=== PATIENT | male | born 1975 | race Caucasian/White ===

== ENCOUNTER 2023-06-03 08:03 | Emergency (ER) | payer MEDICAID ==
[~2023-06-03] VITALS: Ht 165.1 cm; Wt 86.4 kg
[~2023-06-03 08:03] MED LIST: ALBU8.5H8 IH; AMLO-258 PO; LISI-893 PO; METF-1211 PO; PRAV20TA4 PO; TRAM-559 PO
[2023-06-03 08:04] VITALS: TEMP 98
[2023-06-03] MEDS ORDERED: MECL-302 PO (08:13)
[2023-06-03] MEDS ORDERED: PREG75 PO (08:13)
[2023-06-03] MEDS ORDERED: ATOR20TA PO (08:13)
[2023-06-03] MEDS ORDERED: LOSA-382 PO (08:13)
[2023-06-03] MEDS ORDERED: ONDA-104 PO ×2 (08:13→11:19)
[2023-06-03] MEDS ORDERED: METF-1211 PO (08:13)
[2023-06-03] MEDS ORDERED: HYDR25TA2 PO (08:13)
[2023-06-03] MEDS ORDERED: ACETAMINOPHEN 500 MG TABLET PO ONE (09:45)
[2023-06-03] MEDS ORDERED: MECLIZINE HCL 25 MG TABLET PO ONE (09:45)
[2023-06-03] MEDS ORDERED: ONDANSETRON HCL 4 MG TABLET PO ONE (09:45)
[2023-06-03 09:50] LABS: BASOPHILS % (AUTO) 0.6 % (0.0-2.0); HEMATOCRIT 38.1 % (41-53); HEMOGLOBIN 13.1 g/dL (13.5-17.5); LYMPHOCYTES # (AUTO) 0.9 K/uL (1.0-4.8); LYMPHOCYTES % (AUTO) 13.6 % (22.0-44.0); MEAN CORPUSCULAR HEMOGLOBIN 28.6 pg (26.0-34.0); MEAN CORPUSCULAR HGB CONC 34.4 G/dL (31.0-37.0); MEAN CORPUSCULAR VOLUME 83 fL (80-100); MONOCYTES # (AUTO) 0.4 K/uL (0.1-1.0); MONOCYTES % (AUTO) 5.9 % (2.0-9.0); NEUTROPHILS # (AUTO) 5.1 K/uL (1.8-7.7); NEUTROPHILS % (AUTO) 76.9 % (40.0-70.0); PLATELET COUNT (AUTO) 237 K/uL (150-450); RED BLOOD CELL COUNT(AUTO) 4.58 MIL/uL (4.50-5.90); RED CELL DISTRIBUTION WIDTH 13.5 % (11.5-14.5); WHITE BLOOD COUNT (AUTO) 6.6 K/uL (4.5-11.0)
[2023-06-03 09:53] LABS: ALANINE AMINOTRANSFERASE 25 U/L (12-78); ALBUMIN 3.6 g/dL (3.4-5.0); ALKALINE PHOSPHATASE 97 U/L (46-116); ANION GAP 6 mmol/L (8-16); ASPARTATE AMINOTRANSFERASE 12 U/L (15-37); BILIRUBIN,TOTAL 0.5 mg/dL (0.1-1.0); CALCIUM, TOTAL 9.1 mg/dL (8.8-10.5); CARBON DIOXIDE 29 mmol/L (22-29); CHLORIDE 103 mmol/L (98-107); CREATININE 1.07 mg/dL (0.60-1.30); GLOMERULAR FILTR. RATE CALC > 60 mL/min (>60); GLUCOSE,RANDOM 219 mg/dL (70-110); POTASSIUM 3.9 mmol/L (3.5-5.1); SODIUM SERUM 138 mmol/L (136-145); TOTAL PROTEIN, SERUM 7.4 g/dL (6.4-8.2); TROPONIN I-HIGH SENSITIVITY 35 ng/L (<76); UREA NITROGEN, BLOOD 16 mg/dL (7-18)
[2023-06-03] MEDS ORDERED: ACET-66 PO (11:19)
[2023-06-03] MEDS ORDERED: MECL-134 PO (11:19)
[2023-06-03 11:39] VITALS: BP 162/91; PULSE 67; RESP 16
== END 2023-06-03 11:39 | disposition home or self-care (01) ==
LOC: EMS 08:07
DX: E11.65 Type 2 diabetes mellitus with hyperglycemia (principal); R42 Dizziness and giddiness; I10 Essential (primary) hypertension; Z98.890 Other specified postprocedural states
CPT/HCPCS: 99284; 70450; 80053; 82962; 84484; 85025; 36415; 93005; Q0162

== ENCOUNTER 2024-01-29 19:59 | Emergency (ER) | payer MEDICAID, OTHER ==
[~2024-01-29] VITALS: Ht 165.1 cm; Wt 88.6 kg
[~2024-01-29 19:59] MED LIST changes: +ACET-66 PO; -AMLO-258 PO; +ATOR20TA PO; +HYDR25TA2 PO; -LISI-893 PO; +LOSA-382 PO; +MECL-134 PO; +MECL-302 PO; +ONDA-104 PO; -PRAV20TA4 PO; +PREG75 PO; -TRAM-559 PO
[2024-01-29 20:01] VITALS: BP 151/74; PULSE 82; RESP 16; TEMP 97.6
[2024-01-29 20:33] LABS: BASOPHILS % (AUTO) 0.4 % (0.0-2.0); EOSINOPHILS % (AUTO) 3.1 % (1.0-6.0); HEMATOCRIT 39.1 % (41-53); HEMOGLOBIN 13.2 g/dL (13.5-17.5); LYMPHOCYTES # (AUTO) 1.5 K/uL (1.0-4.8); LYMPHOCYTES % (AUTO) 24.3 % (22.0-44.0); MEAN CORPUSCULAR HEMOGLOBIN 27.7 pg (26.0-34.0); MEAN CORPUSCULAR HGB CONC 33.7 G/dL (31.0-37.0); MEAN CORPUSCULAR VOLUME 82 fL (80-100); MONOCYTES # (AUTO) 0.4 K/uL (0.1-1.0); MONOCYTES % (AUTO) 6.9 % (2.0-9.0); NEUTROPHILS % (AUTO) 65.3 % (40.0-70.0); PLATELET COUNT (AUTO) 233 K/uL (150-450); RED BLOOD CELL COUNT(AUTO) 4.75 MIL/uL (4.50-5.90); RED CELL DISTRIBUTION WIDTH 13.5 % (11.5-14.5); WHITE BLOOD COUNT (AUTO) 6.2 K/uL (4.5-11.0)
[2024-01-29 20:47] LABS: ANION GAP 4 mmol/L (8-16); CALCIUM, TOTAL 9.2 mg/dL (8.8-10.5); CARBON DIOXIDE 34 mmol/L (22-29); CHLORIDE 104 mmol/L (98-107); GLOMERULAR FILTR. RATE CALC > 60 mL/min (>60); GLUCOSE,RANDOM 115 mg/dL (70-110); SODIUM SERUM 142 mmol/L (136-145); UREA NITROGEN, BLOOD 26 mg/dL (7-18)
[2024-01-29 22:22] LABS: APPEARANCE,URINE CLEAR (CLEAR); BILIRUBIN,URINE NEGATIVE (NEGATIVE); COLOR,URINE LIGHT YELLOW (YELLOW); GLUCOSE, URINE (UA) TRACE mg/dL (NEGATIVE); KETONES,URINE NEGATIVE (NEGATIVE); LEUKOCYTE ESTERASE ,URINE NEGATIVE (NEGATIVE); NITRATE,URINE NEGATIVE (NEGATIVE); OCCULT BLOOD,URINE NEGATIVE (NEGATIVE); PH,URINE 5.5 (5.0-8.0); PROTEIN,URINE NEGATIVE (NEGATIVE); SPECIFIC GRAVITIY, URINE 1.022 (1.003-1.030); UROBILINOGEN,URINE <=1.0 mg/dL (<=1.0)
== END 2024-01-29 22:08 | disposition left against medical advice (07) ==
LOC: EMS 19:59
DX: R10.9 Unspecified abdominal pain (principal); Z53.21 Procedure and treatment not carried out due to patient leaving prior to being seen by health care provider
CPT/HCPCS: 80048; 81003; 82962; 85025